=== PATIENT | female | born 1980 | race Two or more races ===

== ENCOUNTER 2019-09-18 10:30 | Emergency (ER) | payer SELFPAY ==
[~2019-09-18] VITALS: Ht 162.6 cm; Wt 90.9 kg
[2019-09-18] MEDS ORDERED: PROCHLORPERAZINE 10 MG/2 ML VIAL. IV ONE (11:30)
[2019-09-18] MEDS ORDERED: ACETAMINOPHEN 500 MG TABLET PO ONE (11:30)
--- NOTE | 2019-09-18 11:42 | PHYS DOC ---
General Adult EDM: Chief Complaint: HEADACHE HPI: HPI: Patient is a 38 year old female who presents with generalized headache for the last 4 days. She states this is not the worst headache she is ever had. She states nothing makes it worse or better. She states that ibuprofen does help but she has not taken any since last night. She rates her aching pain 8 out of 10. States that it starts on both sides of her head and just kind wraps around generalized. Patient states she also has not had a bowel movement for the last 4 days. She states usually she can drink some juices and go. She denies abdominal pain, nausea, vomiting, diarrhea, shortness of breath, cough, chest pain, dizziness, numbness or tingling, vision changes, focal weakness. She also states she has a bitter taste in her mouth for the last 4 days. She denies any medical history and takes no medications daily. Her temperature here in the emergency room was 100.3. She is tachycardic at 116. She denies any neck stiffness or pain or back pain. (HARVEY LEMON APRN) Review of Systems: Review of Systems: Constitutional: Denies fever or chills. [] Eyes: Denies change in visual acuity. [] HENT: Denies nasal congestion or sore throat. Bitter taste in her mouth [] Respiratory: Denies cough or shortness of breath. [] Cardiovascular: Denies chest pain or edema. [] GI: Denies abdominal pain, nausea, vomiting, bloody stools or diarrhea. Constipation [] : Denies dysuria. [] Musculoskeletal: Denies back pain or joint pain. [] Integument: Denies rash. [] Neurologic: headache, denies focal weakness or sensory changes. [] Endocrine: Denies polyuria or polydipsia. [] Lymphatic: Denies swollen glands. [] Psychiatric: Denies depression or anxiety. [] (HARVEY LEMON APRN) Heart Score: Risk Factors: Risk Factors: DM, Current or recent (<one month) smoker, HTN, HLP, family history of CAD, obesity. Risk Scores: Score 0 - 3: 2.5% MACE over next 6 weeks - Discharge Home Score 4 - 6: 20.3% MACE over next 6 weeks - Admit for Clinical Observation Score 7 - 10: 72.7% MACE over next 6 weeks - Early Invasive Strategies (HARVEY LEMON APRN) Physical Exam: PE: Constitutional: Well developed, well nourished, no acute distress, non-toxic appearance. Fever. [] HENT: Normocephalic, atraumatic, bilateral external ears normal, oropharynx moist, no oral exudates, nose normal. [] Eyes: PERRLA, EOMI, conjunctiva normal, no discharge. [] Neck: Normal range of motion, no tenderness, supple, no stridor. [] Cardiovascular:Heart rate regular rhythm, no murmur [] Lungs & Thorax: Bilateral breath sounds clear to auscultation [] Abdomen: Bowel sounds normal, soft, no tenderness, no masses, no pulsatile masses. [] Skin: Warm, dry, no erythema, no rash. [] Back: No tenderness, no CVA tenderness. [] Extremities: No tenderness, no cyanosis, no clubbing, ROM intact, no edema. [] Neurologic: Alert and oriented X 3, normal motor function, normal sensory func tion, no focal deficits noted. [] Psychologic: Affect normal, judgement normal, mood normal. [] (HARVEY LEMON APRN) EKG: EKG: [] (HARVEY LEMON APRN) Radiology/Procedures: Radiology/Procedures: [] Impression: [facility] [address] [place], [place] [id number] IMAGING REPORT Signed PATIENT: TONIO LUCEROMACCOUNT: [id number] : 1980 LOCATION: ER AGE: 38 SEX: F EXAM STATUS: REG ER ORD. PHYSICIAN: HARVEY LEMON APRN REASON: constipation, fever PROCEDURE: ACUTE ABDOMEN SERIES PROCEDURE: ACUTE ABDOMEN SERIES STUDY DATE: 09/18/2019 CLINICAL INDICATION / HISTORY: Reason: constipation, fever / Spl. Instructions: / History: . TECHNIQUE: Upright PA chest, supine and upright films of the abdomen were obtained. COMPARISON: None available FINDINGS: AP view the chest reveals airspace consolidation in the right upper lobe. Streaky opacities in the medial right middle lobe and at the medial left lung base are also noted. Cardiac and mediastinal silhouette are unremarkable. No free air is identified below the diaphragms. Supine and upright views of the abdomen reveal no dilated loops of bowel or air-fluid levels. No organomegaly is present. No destructive osseous lesions. IMPRESSION: 1. Multifocal pneumonia. 2. No evidence of bowel obstruction or perforation. Electronically signed by: Ovi Bradley MD (09/18/2019 12:42 PM) [id number] DICTATED and SIGNED BY: OVI BRADLEY MD DATE: 09/18/19 1242 [facility] [address] [place] [address] IMAGING REPORT Signed PATIENT: DAISY LUCEROCOUNT: [id number] : 1980 LOCATION: ER AGE: 38 SEX: F EXAM STATUS: REG ER ORD. PHYSICIAN: HARVEY LEMON APRN REASON: headache PROCEDURE: CT HEAD WO CONTRAST CT Head W/O Contrast: History: Reason: Headache Comparison: none Axial images were obtained without contrast. The aldridge and white matter appears normal and symmetrical for the patients age. There is no mass effect, extraaxial fluid collections or hydrocephalus. There is no gross bleed. There is no focal loss of aldridge-white matter distinction to suggest acute ischemia, i.e. stroke. Impression: No acute findings. PQRS Compliance Statement: One or more of the following individualized dose reduction techniques were utilized for this examination: 1. Automated exposure control 2. Adjustment of the mA and/or kV according to patient size 3. Use of iterative reconstruction technique Electronically signed by: Nadeem Paul III, MD (09/18/2019 12:39 PM) [id number] DICTATED and SIGNED BY: NADEEM PAUL III, MD DATE: 09/18/19 1239 (HARVEY LEMON APRN) Course & Med Decision Making: Course & Med Decision Making Pertinent Labs and Imaging studies reviewed. (See chart for details) Alert and oriented. Speaks in full clear sentences. Patient is Mohawk- speaking and reimbursement auditor is used. Ambulatory with a steady gait. No extremity swelling. Lungs are clear to auscultation all lobes. I have ordered Tylenol, NS 1L, and Compazine. She denies being around anyone else is been sick. Abdomen is soft and nontender. She denies any distention of her abdomen or bloating. MARCELA. Patient's x-ray showed multifocal pneumonia. I have given her 2 L of fluid and azithromycin. Her heart rate has come down to 100. I showed The patient's ABG and he states that is okay. She is not requiring any oxygen. She is alert and oriented and still complains of no cough or shortness of breath. Patient likely has COVID-19. I will send her home on azithromycin and to self isolate. I have tested her here in the ED. Patient states she is feeling better. COVID-19 CRITERIA: The patient was evaluated during the global COVID-19 pandemic, and that diagnosis was suspected/considered upon their initial presentation. Their evaluation, treatment and testing was consistent with [facility] guidelines for patients who present with complaints or symptoms that may be related to COVID-19. [] (HARVEY LEMON APRN) Yamileth Disclaimer: Dragnarciso Disclaimer: This electronic medical record was generated, in whole or in part, using a voice recognition dictation system. (HARVEY LEMON APRN) COVID-19 Patient Risks: Age 65 or older: No Sign of co-morbidity: No Exp to person + for COVID: No Exp to PUI: No Travel from affected area: No Lower respiratory symptoms: No Fever: Yes (HARVEY LEMON APRN) PPE Use: Full PPE with N95 mask or PAPR: Yes (HARVEY LEMON APRN) Departure Departure Impression: Primary Impression: Pneumonia Qualified Codes: J18.9 - Pneumonia, unspecified organism Additional Impression: Suspected 2019 novel coronavirus infection Disposition: HOME, SELF-CARE Condition: STABLE Patient Instructions: Pneumonia, Adult Additional Instructions: You need to self isolate for at least 14 days. You will be called with your COVID results. Do not go to work for at least 14 days. Take medication as prescribed. If you begin having severe shortness of breath and chest pain return to the emergency room. Scripts Azithromycin (AZITHROMYCIN TABLET) 250 Mg Tablet 1 PKG PO UD for 5 Days, #6 TAB 0 Refills 2 the first day followed by 1 for days 2-5 Prov: HARVEY LEMON APRN 09/18/19 Justicifation of Admission Dx: Justifications for Admission: Justification of Admission Dx: N/A (HARVEY LEMON APRN) Attending Signature Attending Signature I have participated in the care of this patient and I have reviewed and agree with all pertinent clinical information above including history, exam, and recommendations. (SANTINO DOWD DO) HARVEY LEMON APRN Sep 18, 2019 11:42 SANTINO DOWD DO Sep 18, 2019 16:38
[2019-09-18 11:56] LABS: BASO % 0 % (0-3); EOS % 0 % (0-3); HEMATOCRIT 39.6 % (36.0-47.0); HEMOGLOBIN 14.1 g/dL (12.0-15.5); LYMPH % 12 % (24-48); MEAN CORPUSCULAR HEMOGLOBIN 31 pg (25-35); MEAN CORPUSCULAR HGB CONC 36 g/dL (31-37); MEAN CORPUSCULAR VOLUME 86 fL (79-100); MONO # 0.4 x10^3/uL (0.0-1.1); MONO % 5 % (0-9); NEUT # 6.8 x10^3/uL (1.8-7.7); NEUT % 82 % (31-73); PLATELET COUNT 153 x10^3/uL (140-400); RED BLOOD COUNT 4.59 x10^6/uL (3.50-5.40); RED CELL DISTRIBUTION WIDTH 13.3 % (11.5-14.5); WHITE BLOOD COUNT 8.3 x10^3/uL (4.0-11.0)
[2019-09-18] MEDS ORDERED: IV NORMAL SALINE 1000ML BAG 1,000 ML IV ONE ×2 (12:00→14:45)
[2019-09-18 12:07] LABS: BILIRUBIN,URINE NEGATIVE (NEG); CLARITY,URINE CLEAR; COLOR,URINE AMBER; NITRITE,URINE NEGATIVE (NEG); PROTEIN,URINE >=300 mg/dL (NEG-TRACE)
[2019-09-18 12:15] LABS: U PREG PATIENT NEGATIVE (NEG)
[2019-09-18 12:19] LABS: BARBITURATES NEG (NEG); BENZODIAZEPINES NEG (NEG); CANNABINOIDS NEG (NEG); COCAINE NEG (NEG); METHADONE NEG (NEG); OPIATES NEG (NEG); PHENCYCLIDINE NEG (NEG)
[2019-09-18 12:20] LABS: AMPHETAMINE/METHAMPHETAMINE NEG (NEG)
[2019-09-18 12:20] LABS: CALCIUM 8.8 mg/dL (8.5-10.1); CREATININE 0.8 mg/dL (0.6-1.0); GFR 80.7; POTASSIUM 3.7 mmol/L (3.5-5.1)
[2019-09-18 12:23] LABS: ALBUMIN 3.1 g/dL (3.4-5.0); ALBUMIN/GLOBULIN RATIO 0.6 (1.0-1.7); TOTAL BILIRUBIN 0.4 mg/dL (0.2-1.0); TOTAL PROTEIN 7.9 g/dL (6.4-8.2)
[2019-09-18 12:25] LABS: SQUAMOUS EPITHELIAL CELL,UR MOD /LPF
[2019-09-18 12:27] LABS: BACTERIA,URINE MODERATE /HPF (0-FEW)
--- NOTE | 2019-09-18 12:42 | RAD ---
CT Head W/O Contrast: History: Reason: Headache Comparison: none Axial images were obtained without contrast. The aldridge and white matter appears normal and symmetrical for the patients age. There is no mass effect, extraaxial fluid collections or hydrocephalus. There is no gross bleed. There is no focal loss of aldridge-white matter distinction to suggest acute ischemia, i.e. stroke. Impression: No acute findings. RS Compliance Statement: One or more of the following individualized dose reduction techniques were utilized for this examination: 1. Automated exposure control 2. Adjustment of the mA and/or kV according to patient size 3. Use of iterative reconstruction technique Electronically signed by: Eliezer Pierce III, MD (09/18/2019 12:39 PM) [id number]
--- NOTE | 2019-09-18 12:45 | RAD ---
PROCEDURE: ACUTE ABDOMEN SERIES STUDY DATE: 09/18/2019 CLINICAL INDICATION / HISTORY: Reason: constipation, fever / Spl. Instructions: / History: . TECHNIQUE: Upright PA chest, supine and upright films of the abdomen were obtained. COMPARISON: None available FINDINGS: AP view the chest reveals airspace consolidation in the right upper lobe. Streaky opacities in the medial right middle lobe and at the medial left lung base are also noted. Cardiac and mediastinal silhouette are unremarkable. No free air is identified below the diaphragms. Supine and upright views of the abdomen reveal no dilated loops of bowel or air-fluid levels. No organomegaly is present. No destructive osseous lesions. IMPRESSION: 1. Multifocal pneumonia. 2. No evidence of bowel obstruction or perforation. Electronically signed by: Jose Juan Bradley MD (09/18/2019 12:42 PM) [id number]
[2019-09-18] MEDS ORDERED: AZITHRMYCN 500MG IVPB FOR OMNI 250 ML IV ONE (13:00)
[2019-09-18 13:40] LABS: BASE EXCESS COOX -4 mmol/L (-3-3); HCO3 COOX 19 mmol/L (21-28); METHEMOGLOBIN 0.5 % (0.0-1.9); OXYHEMOGLOBIN 94.6 %; PCO2 COOX 29 mmHg (35-46); PO2 COOX 79 mmHg (85-108); SAT O2 COOX 95 % (92-99)
[2019-09-18] MEDS ORDERED: AZIT250T6 PO (14:46)
[2019-09-18 16:00] VITALS: BP 129/73
== END 2019-09-18 16:06 | disposition home or self-care (01) ==
LOC: ER 10:30
DX: U07.1 COVID-19 (principal); J18.9 Pneumonia, unspecified organism; R51 Headache; Z79.899 Other long term (current) drug therapy
CPT/HCPCS: 36415; 70450; 74022; 80053; 80307; 81001; 81025; 82805; 83605; 83690; 85025; 87086; 96365; 96375; 99285; C9803; J0456; J0780; J7030; U0003